=== PATIENT | female | born 1950 | race Caucasian/White ===

== ENCOUNTER 2022-08-02 09:10 | Outpatient (CLI) | payer BC, MEDICARE | END 2022-08-02 09:11 | disposition home or self-care (01) | LOC: CSHMRI 09:10 | PROVIDERS: ATTEND Anesthesiology Pain Medicine | DX: M21.372 Foot drop, left foot (principal); M47.816 Spondylosis without myelopathy or radiculopathy, lumbar region | CPT/HCPCS: 72110; 72148 ==